=== PATIENT | female | born 1980 | race Caucasian/White ===

== ENCOUNTER 2021-01-10 10:14 | Emergency (ER) | payer BC, OTHER ==
[~2021-01-10 10:14] MED LIST: ASPIRIN EC81 MG PO; COLACE 100MG C100 MG PO; FEOSOL325 MG PO; IBUPROFEN600 MG PO; IMDUR ER TAB 3030 MG PO; LOPRESSOR 25 MG25 MG PO; PROTONIX40 MG PO; SIMVASTATIN10 MG PO; TRANDATE 200 M200 MG PO; ZANTAC150 MG PO
[2021-01-10 11:04] LABS: HEMOGLOBIN 11.7 gm/dl (12.3-15.3); RED BLOOD COUNT 4.43 M/UL (4.00-5.10); WHITE BLOOD COUNT 10.6 K/UL (4.5-11.0)
[2021-01-10 11:39] LABS: BUN/CREATININE RATIO 14 (0-10)
== END 2021-01-10 15:15 | disposition home or self-care (01) ==
LOC: ER1 10:14
PROVIDERS: Family Medicine
DX: R10.84 Generalized abdominal pain (principal); D64.9 Anemia, unspecified; E78.5 Hyperlipidemia, unspecified; I10 Essential (primary) hypertension; I25.2 Old myocardial infarction; K21.9 Gastro-esophageal reflux disease without esophagitis; Z90.49 Acquired absence of other specified parts of digestive tract; Z90.89 Acquired absence of other organs; Z79.82 Long term (current) use of aspirin; Z79.899 Other long term (current) drug therapy; Z95.2 Presence of prosthetic heart valve
CPT/HCPCS: 80053; 81001; 83690; 84703; 85025; 96374; 99284; J1885

== ENCOUNTER → 2021-10-16 | Outpatient (CLI) | payer BC, OTHER ==
[~2021-10-16] VITALS: Ht 167.6 cm; Wt 74.8 kg
== END ==
LOC: OPSV 10-09 14:00
DX: D50.9 Iron deficiency anemia, unspecified (principal); D51.0 Vitamin B12 deficiency anemia due to intrinsic factor deficiency; I25.10 Atherosclerotic heart disease of native coronary artery without angina pectoris; E55.9 Vitamin D deficiency, unspecified
CPT/HCPCS: 96365; J1756

== ENCOUNTER → 2021-11-13 | Outpatient (CLI) | payer BC, OTHER ==
[~2021-11-13] VITALS: Ht 167.6 cm; Wt 74.8 kg
== END ==
LOC: OPSV 08:51
DX: D50.9 Iron deficiency anemia, unspecified (principal); D51.0 Vitamin B12 deficiency anemia due to intrinsic factor deficiency; E55.9 Vitamin D deficiency, unspecified; I25.10 Atherosclerotic heart disease of native coronary artery without angina pectoris
CPT/HCPCS: 96365; J1756

== ENCOUNTER → 2021-11-27 | Outpatient (CLI) | payer BC, OTHER ==
[~2021-11-27] VITALS: Ht 167.6 cm; Wt 76.2 kg
== END ==
LOC: OPSV 09:00
DX: D50.9 Iron deficiency anemia, unspecified (principal); D51.0 Vitamin B12 deficiency anemia due to intrinsic factor deficiency; E55.9 Vitamin D deficiency, unspecified; I25.10 Atherosclerotic heart disease of native coronary artery without angina pectoris
CPT/HCPCS: 96365; J1756